=== PATIENT | female | born 1995 | race African-American/Black ===

== ENCOUNTER 2018-03-12 16:57 | Emergency (ER) | payer OTHER ==
--- NOTE | 2018-03-12 17:22 | PDOC ---
Rapid Medical Evaluation Time Seen by Provider: 03/12/18 17:16 Medical Evaluation: 03/12/18 17:16 I have performed a brief in-person evaluation of the patient. The patient presents with a chief complaint of : chest pain with deep breathing, and chest discomfort while sitting at home. Also reports non productive coughing Denies nausea, dizziness reports history of anxiety Pertinent physical exam findings. NAD clear lungs bilaterally heart s1s2 abdomen soft non tender I have ordered the following ekg, chest xray This patient will proceed to the ED for further evaluation.
[2018-03-12 17:24] VITALS: BP 151/86; PULSE 107; TEMP 100.6; BMI 37.0
[2018-03-12] MEDS ORDERED: IBUPROFEN 600 MG TABLET (FP) PO ONE (17:25)
[2018-03-12] MEDS ORDERED: ALBUTEROL SO4 2.5/IPRATROPIUM 0.5 INH SOL 3 ML VIAL.NEB. NEB ONE ×2 (17:43→19:38)
[2018-03-12] MEDS: ALBUTEROL SO4 2.5/IPRATROPIUM 0.5 INH SOL 3 ML VIAL.NEB. NEB SCH ×3 (17:46→19:41)
--- NOTE | 2018-03-12 17:46 | PDOC ---
History of Present Illness <Marcial Goetz - Last Filed: 03/12/18 20:29> - General History Source: Patient Exam Limitations: No Limitations - History of Present Illness Initial Comments: 03/12/18 18:06 This is a 23-year-old woman with past medical history of anxiety presents emergency Department with 1 day of pleuritic chest pain and right upper back pain along with coughing for the past 4 days. Patient states she has had wet unproductive cough for the past 4 days. Patient reports feeling short of breath after episodes of coughing. Patient is a current daily smoker of approximately half a pack per day. Patient reports subjective fevers, chills and frontal headache in addition to her symptoms. She denies abdominal pain, nausea, vomiting, dysuria, diarrhea. <Cody Ortiz - Last Filed: 03/13/18 19:15> - General Chief Complaint: Cold Symptoms Stated Complaint: RESPIRATORY Time Seen by Provider: 03/12/18 17:16 Past History <Marcial Goetz - Last Filed: 03/12/18 20:29> - Past Medical History COPD: No - Suicide/Smoking/Psychosocial Hx Smoking History: Current every day smoker Have you smoked in the past 12 months: Yes Number of Cigarettes Smoked Daily: 0 Information on smoking cessation initiated: No Hx Alcohol Use: No Drug/Substance Use Hx: No Substance Use Type: Marijuana <Cody Ortiz - Last Filed: 03/13/18 19:15> - Past Medical History Allergies/Adverse Reactions: Allergies Allergy/AdvReac Type Severity Reaction Status Date / Time No Known Allergies Allergy Verified 03/12/18 17:17 Home Medications: Ambulatory Orders Albuterol Sulfate Inhaler - [Ventolin HFA Inhaler -] 2 inh PO Q4H #1 inh Azithromycin [Zithromax 250mg Tablets -] 250 mg PO UTDICT #6 tab 03/12/18 Prednisone [Prednisone 50 MG TABLETS] 50 mg PO DAILY #3 tablet 03/12/18 Review of Systems - Review of Systems Able to Perform ROS?: Yes Is the patient limited Armenian proficient: No Constitutional: Yes: See HPI HEENTM: No: Symptoms Reported Respiratory: Yes: See HPI Cardiac (ROS): No: Symptoms Reported ABD/GI: No: Symptoms Reported : No: Symptoms Reported Musculoskeletal: No: Symptoms Reported Integumentary: No: Symptoms Reported Neurological: Yes: See HPI Endocrine: No: Symptoms Reported Hematologic/Lymphatic: No: Symptoms Reported <Cody Ortiz - Last Filed: 03/13/18 19:15> *Physical Exam - Vital Signs Last Vital Signs Temp Pulse Resp BP Pulse Ox 100.6 F H 107 H 22 151/86 100 03/12/18 17:18 03/12/18 17:18 03/12/18 17:18 03/12/18 17:18 03/12/18 17:18 <SofyMarcial Perla - Last Filed: 03/12/18 20:29> - Vital Signs Last Vital Signs Temp Pulse Resp BP Pulse Ox 100.6 F H 107 H 22 151/86 100 03/12/18 17:18 03/12/18 17:18 03/12/18 17:18 03/12/18 17:18 03/12/18 17:18 - Physical Exam General Appearance: Yes: Appropriately Dressed. No: Apparent Distress HEENT: positive: EOMI, MARQUES, TMs Normal, Pharynx Normal, Rhinorrhea (clear) Neck: positive: Trachea midline, Supple Respiratory/Chest: positive: Lungs Clear, Wheezing (Expirational). negative: Respiratory Distress, Accessory Muscle Use Cardiovascular: positive: Regular Rhythm, Regular Rate. negative: Murmur Gastrointestinal/Abdominal: positive: Normal Bowel Sounds, Soft. negative: Tender Musculoskeletal: positive: Normal Inspection. negative: CVA Tenderness Extremity: positive: Normal Inspection Integumentary: positive: Normal Color, Dry, Warm Neurologic: positive: Fully Oriented, Alert, Normal Response, Motor Strength 5/5 <Cody Ortiz - Last Filed: 03/13/18 19:15> ED Treatment Course - ADDITIONAL ORDERS Additional order review: Laboratory Results 03/12/18 03/12/18 18:40 18:11 Urine Color Straw Urine Appearance Clear Urine pH 6.0 Ur Specific [place] 1.011 Urine Protein Negative Urine Glucose (UA) Negative Urine Ketones Negative Urine Blood Negative Urine Nitrite Negative Urine Bilirubin Negative Urine Urobilinogen Negative Ur Leukocyte Esterase Negative Urine HCG, Qual Negative 03/12/18 19:00 Influenza Types A,B Antigen - Final Nasopharyngeal Swab - Final - Medications Given in the ED: ED Medications Discontinued Medications Generic Name Dose Route Start Last Admin Trade Name Freq PRN Reason Stop Dose Admin Albuterol/Ipratropium 1 amp 03/12/18 17:45 03/12/18 19:41 Duoneb - NEB 03/12/18 18:31 1 amp Q15M LINDA Administration Ibuprofen 600 mg 03/12/18 17:25 03/12/18 17:49 Motrin - PO 03/12/18 17:26 600 mg ONCE ONE Administration Ondansetron HCl 4 mg 03/12/18 18:40 03/12/18 18:44 Zofran Odt - SL 03/12/18 18:41 4 mg ONCE ONE Administration Prednisone 60 mg 03/12/18 19:37 03/12/18 19:41 Deltasone - PO 03/12/18 19:38 60 mg ONCE ONE Administration <Marcial Goetz - Last Filed: 03/12/18 20:29> Medical Decision Making - Medical Decision Making 03/12/18 18:09 A/P: 23-year-old woman with pleuritic chest pain and moist cough for 5 days Nasal congestion present Oropharynx clear without erythema or exudates Tenderness to palpation over frontal sinuses Respirations even and unlabored. End expiratory wheezing noted Urine, chest x-ray, EKG, nebulizer treatments 03/12/18 19:39 Patient states her respirations are currently easier than upon arrival. Patient continues to have and expiratory wheezing on the right lung. Patient also states complete relief of chest pain with ease of respirations. I'll give the patient prednisone 60 mg orally now and continue with nebulizer treatments. EKG is reviewed by me and interpreted by Dr. Mary-sinus rhythm with rate of 97 normal intervals noted. X-rays read by me: Angles clear. No focal consolidations or infiltrates noted. Cardiac silhouette is within normal limits. Visualized osseous structures intact. <Cody Ortiz - Last Filed: 03/13/18 19:15> *DC/Admit/Observation/Transfer <Marcial Goetz - Last Filed: 03/12/18 20:29> - Discharge Dispostion Decision to Admit order: No <Cody Ortiz - Last Filed: 03/13/18 19:15> Diagnosis at time of Disposition: Viral respiratory illness RAD (reactive airway disease) with wheezing Qualifiers: Asthma severity: mild Asthma persistence: intermittent Asthma complication type : uncomplicated Qualified Code(s): J45.20 - Mild intermittent asthma, uncomplicated - Discharge Dispostion Disposition: HOME Condition at time of disposition: Stable - Prescriptions Prescriptions: Albuterol Sulfate Inhaler - [Ventolin HFA Inhaler -] 2 inh PO Q4H #1 inh Azithromycin [Zithromax 250mg Tablets -] 250 mg PO UTDICT #6 tab Prednisone [Prednisone 50 MG TABLETS] 50 mg PO DAILY #3 tablet - Patient Instructions Additional Instructions: Rest, drink lots of fluids: Teas, water, soups, Pedialyte Saltwater gargles Steamy showers/seem to face break up mucus Avoid contact with others until fevers and cough resolved Lots of handwashing and good hygiene Continue [id number] medications for symptomatic relief Azithromycin as directed. Albuterol pump as directed. Tylenol or Motrin for fever and pain Followup with private physician in one to 2 days as needed Return to emergency department for worsened symptoms, fevers, dehydration
[2018-03-12 18:32] LABS: URINE APPEARANCE CLEAR; URINE BILIRUBIN NEGATIVE (<2.0 mg/dL); URINE COLOR STRAW; URINE GLUCOSE (UA) NEGATIVE (NEGATIVE); URINE KETONE NEGATIVE (NEGATIVE); URINE LEUK ESTERASE NEGATIVE (NEGATIVE); URINE NITRITE NEGATIVE (NEGATIVE); URINE PROTEIN NEGATIVE (NEGATIVE); URINE UROBILINOGEN NEGATIVE mg/dL (0.2-1.0)
[2018-03-12] MEDS ORDERED: ONDANSETRON *ODT* 4 MG TABLET SL ONE (18:40)
[2018-03-12] MEDS ORDERED: ONDANSETRON *ODT* 4 MG TABLET ONE (18:43)
[2018-03-12] MEDS ORDERED: predniSONE 20 MG TABLET (UD) PO ONE (19:37)
[2018-03-12] MEDS ORDERED: predniSONE 20 MG TABLET (UD) ONE (19:38)
[2018-03-12] MEDS ORDERED: ACETAMINOPHEN 500 MG TABLET (FP) PO ONE (19:53)
[2018-03-12] MEDS ORDERED: ACETAMINOPHEN 500 MG TABLET (FP) ONE (20:27)
--- NOTE | 2018-03-13 13:28 | EKG ---
Test Reason : Blood Pressure : / mmHG Vent. Rate : 097 BPM Atrial Rate : 097 BPM P-R Int : 114 ms QRS Dur : 078 ms QT Int : 336 ms P-R-T Axes : 056 050 011 degrees QTc Int : 426 ms POOR DATA QUALITY, INTERPRETATION MAY BE ADVERSELY AFFECTED NORMAL SINUS RHYTHM POSSIBLE LEFT ATRIAL ENLARGEMENT BORDERLINE ECG NO PREVIOUS ECGS AVAILABLE Confirmed by MALLORIE RAE, JANE ([id number]) on 03/13/2018 1:27:45 PM Referred By: Confirmed By:JANE NOBLES MD
== END 2018-03-12 20:48 | disposition home or self-care (01) ==
LOC: JERFT 16:57
PROC: 3E0F7GC Introduction of Other Therapeutic Substance into Respiratory Tract, Via Natural or Artificial Opening (ICD-10-PCS; principal; 2018-03-12)
DX: J45.20 Mild intermittent asthma, uncomplicated (principal); J45.909 Unspecified asthma, uncomplicated; B34.9 Viral infection, unspecified
CPT/HCPCS: 71045-TC-FY; 81003; 84703; 87086; 87804; 93005; 93010; 99282-25; J7620; Q0162